=== PATIENT | male | born 1975 | race Hispanic/Latino ===

== ENCOUNTER 2018-11-16 17:03 | Inpatient (IN) | payer BC ==
[~2018-11-16] VITALS: Ht 175.3 cm; Wt 103.9 kg
[2018-11-16] MEDS ORDERED: SODIUM CHLORIDE 0.9% 1000ML 1,000 ML IV STA (17:12)
[2018-11-16] MEDS ORDERED: MORPHINE SULFATE INJ 4 MG/ML INJ 1ML IV NR (17:15)
[2018-11-16] MEDS ORDERED: ONDANSETRON HCL INJ 2MG/ML 2ML 2 MG/ML VIAL IV NR (18:00)
[2018-11-16 18:04] LABS: BILIRUBIN,URINE NEGATIVE (NEGATIVE); CLARITY,URINE SL CLOUDY (CLEAR); COLOR,URINE YELLOW (YELLOW); KETONES,URINE NEGATIVE (NEGATIVE); LEUKOCYTE ESTERASE ,URINE NEGATIVE (NEGATIVE); NITRITE,URINE NEGATIVE (NEGATIVE); PROTEIN,URINE DIPSTICK NEGATIVE (NEGATIVE); URINE UROBILINOGEN 0.2 mg/dL (0.2 - 1)
[2018-11-16 18:17] LABS: EPITHELIAL CELLS,URINE RARE /LPF
[2018-11-16] MEDS ORDERED: MORPHINE SULFATE INJ 4 MG/ML INJ 1ML IV PRN (18:30)
--- NOTE | 2018-11-16 21:45 | NUR ---
patient brought to unit from ER, patient stable, no n/v, no pain. patient denies medical history.
[2018-11-16] MEDS: SODIUM CHLORIDE 0.9% 1000ML 1,000 ML IV SCH (21:54)
[2018-11-16 22:15] LABS: BASOPHILS % 0.6 % (0.0-1.0); EOSINOPHILS # (AUTO) 0.1 (0.0-0.4); EOSINOPHILS % 1.2 % (0.0-6.0); HEMATOCRIT 44.3 % (38.2-49.6); HEMOGLOBIN 14.9 g/dL (14.0-18.0); LYMPHOCYTES # (AUTO) 1.6 (1.0-3.2); LYMPHOCYTES % 32.4 % (18.0-39.1); MEAN CORPUSCULAR HEMOGLOBIN 28.7 pg (28-32); MEAN CORPUSCULAR HGB CONC 33.6 g/dL (31-35); MEAN CORPUSCULAR VOLUME 85.2 fL (81-99); MONOCYTES # (AUTO) 0.8 (0.2-0.8); MONOCYTES % 15.2 % (4.4-11.3); NEUTROPHILS # (AUTO) 2.5 (2.1-6.9); NEUTROPHILS % 50.4 % (38.7-80.0); PLATELET COUNT 212 x10e3/uL (140-360); RED CELL DISTRIBUTION WIDTH 13.2 % (11.7-14.4)
[2018-11-16 22:26] LABS: INR 0.86; PROTHROMBIN TIME 12.2 seconds (11.9-14.5)
[2018-11-16 22:27] LABS: PARTIAL THROMBOPLASTIN TIME 33.4 seconds (23.8-35.5)
[2018-11-16 22:35] LABS: ALANINE AMINOTRANSFERASE 125 IU/L (0-55); ALBUMIN 3.9 g/dL (3.5-5.0); ALBUMIN/GLOBULIN RATIO 0.9 (0.8-2.0); ALKALINE PHOSPHATASE 124 IU/L (40-150); AMYLASE 32 U/L (25-125); ANION GAP 15.6 mmol/L (8-16); BLOOD UREA NITROGEN 16 mg/dL (7-26); BUN/CREATININE RATIO 18 (6-25); CALCIUM 9.6 mg/dL (8.4-10.2); CARBON DIOXIDE 30 mmol/L (22-29); CHLORIDE 96 mmol/L (98-107); CREATININE, SERUM 0.87 mg/dL (0.72-1.25); EST GLOMERULAR FILTRATION RATE > 60 ML/MIN (60-); GLUCOSE 93 mg/dL (74-118); LIPASE 42 U/L (8-78); POTASSIUM 3.6 mmol/L (3.5-5.1); SODIUM 138 mmol/L (136-145)
[2018-11-16] MEDS: PIPER-TAZ 3.375 GM / NS 50ML IV SCH (22:40)
[2018-11-16 23:24] LABS: CREATINE KINASE 54 IU/L (30-200)
[2018-11-16 23:30] VITALS: BP 114/80
[2018-11-16 23:56] VITALS: BP 124/76
[2018-11-17] VITALS (7 sets, daily range): BP systolic 94–175; BP diastolic 53–77
[2018-11-17] MEDS: SODIUM CHLORIDE 0.9% 1000ML 1,000 ML IV SCH ×2 (00:34→10:43)
[2018-11-17] MEDS: PIPER-TAZ 3.375 GM / NS 50ML IV SCH ×2 (04:53→14:00)
[2018-11-17 06:33] LABS: BASOPHILS % 0.6 % (0.0-1.0); EOSINOPHILS # (AUTO) 0.1 (0.0-0.4); EOSINOPHILS % 1.4 % (0.0-6.0); HEMATOCRIT 39.9 % (38.2-49.6); HEMOGLOBIN 13.1 g/dL (14.0-18.0); LYMPHOCYTES # (AUTO) 1.3 (1.0-3.2); LYMPHOCYTES % 25.3 % (18.0-39.1); MEAN CORPUSCULAR HEMOGLOBIN 27.9 pg (28-32); MEAN CORPUSCULAR HGB CONC 32.8 g/dL (31-35); MEAN CORPUSCULAR VOLUME 84.9 fL (81-99); MONOCYTES # (AUTO) 0.7 (0.2-0.8); MONOCYTES % 13.4 % (4.4-11.3); NEUTROPHILS % 59.1 % (38.7-80.0); PLATELET COUNT 200 x10e3/uL (140-360); RED CELL DISTRIBUTION WIDTH 13.1 % (11.7-14.4)
--- NOTE | 2018-11-17 07:20 | NUR ---
Dr. Vega called and reminded of the pending consult, states aware of patient.
--- NOTE | 2018-11-17 08:20 | NUR ---
Patient alert and responsive, received patient this morning and no resp distress, IV fluids running as ordered, no c/o pains, VSS and will monitor.
[2018-11-17] MEDS ORDERED: KETOROLAC TROMETHAMINE 30 MG/ML VIAL IV PRN (08:30)
--- NOTE | 2018-11-17 09:01 | NUR ---
Call to Dr. Flores's office to confirm consult was called and that he is aware, spoke with on-call and they will send him the information
--- NOTE | 2018-11-17 09:12 | NUR ---
Spoke with Dr. Yanes and he states was not aware of consult. Stat order in place for abdl u/s.
--- NOTE | 2018-11-17 11:36 | Consultation ---
DATE OF CONSULTATION: 11/17/2018 REASON FOR CONSULTATION: Cholecystitis. HISTORY OF PRESENT ILLNESS: The patient is a 43-year-old male, admitted through the emergency room with right upper quadrant pain. He had done an ultrasound elsewhere that revealed changes consistent with acute cholecystitis secondary to cholelithiasis, normal duct, there was hepatic steatosis. PAST MEDICAL HISTORY: The patient's past medical history is unremarkable. PAST SURGICAL HISTORY: No previous surgeries. MEDICATIONS: He certainly taking no medicines. SOCIAL HISTORY: He drinks socially. He does not smoke. He works as a driver messenger. REVIEW OF SYSTEMS: As per history of present illness. PHYSICAL EXAMINATION: GENERAL: Reveals a 43-year-old male, in no acute distress. HEAD, EYES, EARS, NOSE, and THROAT: Revealed no acute process. LUNGS: Clear. HEART: Revealed regular sinus rhythm. ABDOMEN: Soft, without any peritoneal signs. EXTREMITIES: Revealed no clubbing, cyanosis, or edema. LABORATORY DATA: Revealed normal white count with minimal elevation of the transaminases secondary to hepatic steatosis. RADIOGRAPHIC DATA: Ultrasound reveals normal ductal anatomy, gallstones, and changes consistent with acute cholecystitis. ASSESSMENT: Cholecystitis. PLAN: To proceed with laparoscopic cholecystectomy, possible open cholecystectomy. The procedure, indications, benefits, and risks have been discussed with the patient. They agreed with the surgery. MD LIZBETH Benito/JAC /[id number]
--- NOTE | 2018-11-17 11:39 | NUR ---
Patient signed consent for procedure at this time
[2018-11-17] MEDS ORDERED: BUPIVACAINE 0.25%/EPI 30ML SDV INJ ONE (11:47)
--- NOTE | 2018-11-17 11:56 | NUR ---
Patient picked up at this time for procedure
[2018-11-17] MEDS ORDERED: HYDROGEN PEROXIDE 120 ML BTL ONE (14:57)
[2018-11-17] MEDS ORDERED: ONDANSETRON HCL INJ 2MG/ML 2ML 2 MG/ML VIAL IV PRN (15:30)
[2018-11-17] MEDS: PANTOPRAZOLE 40 MG 10ML VIAL IV SCH (15:30)
[2018-11-17] MEDS ORDERED: FENTANYL CITRATE/PF 100MCG/2 ML INJ ONE ×2 (15:38→18:02)
[2018-11-17] MEDS ORDERED: PANTOPRAZOLE 40 MG 10ML VIAL ONE (16:12)
--- NOTE | 2018-11-17 16:40 | NUR ---
Report given to Nancy VALERIO and patient transferred to her care in stable condition
--- NOTE | 2018-11-17 16:59 | NUR ---
BACK IN ROOM VIA STRETCHER FROM PACU, AA&OX3, RA SATS 88-90%, 2L NC PLACED PER PROTOCOL, DRESSING CDI TO ABD, MICHELLE TO RIGHT SIDE WITH SCANT DARK RED DRAINAGE NOTED, C/O UPPER INTERMITTENT ABD PAIN , BILAT SCD'S IN PLACE, PUMP TURNED ON, RAC INTACT, CALL LIGHT WITHIN REACH
[2018-11-17] MEDS: HYDROMORPHONE 1MG/1ML INJ IV PRN ×3 (17:27→23:40)
[2018-11-17] MEDS: ONDANSETRON HCL INJ 2MG/ML 2ML 2 MG/ML VIAL IV PRN (17:28)
--- NOTE | 2018-11-17 17:29 | NUR ---
MD SLATER INTO SEE PT, NO NEW ORDERS, MEDICATED PT FOR PAIN 12/08, EDUCATED TO NOT GET OOB WITHOUT CALLING FOR ASSISTANCE, VERBALIZED UNDERSTANDING, CALL LIGHT WITHIN REACH, FAMILY AT SIDE
[2018-11-17] MEDS: PIPER-TAZ 3.375 GM 50 ML IV SCH ×2 (18:00→23:39)
[2018-11-17] MEDS ORDERED: DESFLURANE 240 ML BTL INH ONE (18:02)
[2018-11-17] MEDS ORDERED: PROPOFOL IV EMULSION 10 MG/ML 20 ML VIAL ONE (18:02)
[2018-11-17] MEDS ORDERED: LIDOCAINE HCL 2% LOCAL INJ 5 ML SDV VIAL INJ ONE (18:02)
[2018-11-17] MEDS ORDERED: MIDAZOLAM HCL 2 MG/2 ML VIAL ONE (18:02)
[2018-11-17] MEDS ORDERED: ROCURONIUM BROMIDE 10 MG/ML 5ML VIAL ONE (18:02)
[2018-11-17] MEDS ORDERED: ACETAMINOPHEN 1000 MG/100 ML IV ONE (18:02)
[2018-11-17] MEDS ORDERED: DEXAMETHASONE SOD PHOS INJ 4 MG/ML VIAL ONE (18:02)
--- NOTE | 2018-11-17 18:17 | NUR ---
RESTING WITH EYES CLOSED, RR EVEN AND NONLABORED, OPENS EYES TO VOICE, STATES "PAIN BETTER", CALL LIGHT WITHIN REACH, SCANT AMOUNT OF DRAINAGE NOTED IN MICHELLE
--- NOTE | 2018-11-17 18:39 | NUR ---
WITH STANDBY ASSIST, PT OOB TO BR, VOIDING WITHOUT DIFFICULTY, CALL LIGHT WITHIN REACH, FAMILY AT SIDE
--- NOTE | 2018-11-17 19:28 | Operative Report ---
DATE OF PROCEDURE: 11/17/2018 SURGEON: Timothy Flores MD PREOPERATIVE DIAGNOSES: Acute cholecystitis secondary to cholelithiasis, obesity. POSTOPERATIVE DIAGNOSES: Acute cholecystitis secondary to cholelithiasis, obesity. PROCEDURE PERFORMED: Laparoscopic cholecystectomy. ANESTHESIA: General endotracheal. ESTIMATED BLOOD LOSS: Minimal. DRAINS: None. COMPLICATION: None. INDICATION AND FINDINGS: The patient is a 43-year-old obese male, admitted because of acute cholecystitis. The patient started having severe excruciating pain. On Monday prior to admission, he went to [facility] where he was seen in the emergency room, given morphine and discharged home and told to follow up with his primary care physician. The patient then followed up with his GI doctor and had an ultrasound that revealed acute cholecystitis, reason for which he was sent to the emergency room at [facility] to be admitted. INTRAOPERATIVE FINDINGS: The patient had acute cholecystitis with several large stones. The gallbladder was intrahepatic, mainly the distal half of it completely intrahepatic and stuck to the liver parenchyma with several large stones in that area. This made the operation somewhat harder to perform. At some point, there was some spillage of stones due to the acute process with intrahepatic location of the gallbladder. Those were removed. The cystic duct was short and not dilated. There was no evidence of ductal dilatation. A 10 mm flat Jeff-Singh drain was placed to drain the right upper quadrant. Preoperatively, the patient and his family were counseled about potential complications such as bleeding, infection, bile duct, the need for an open procedure. They understood and agreed to proceed with emergent laparoscopic cholecystectomy. DESCRIPTION OF PROCEDURE: With the patient lying on the operative table in the supine position and after administration of general endotracheal anesthesia, he was prepped and draped for laparoscopic cholecystectomy. The procedure was begun by establishing the pneumoperitoneum in the umbilical site. After stab wound was made in that location and saline drop test was performed and pneumoperitoneum was insufflated to 15 mm of pressure. At that point, we placed a 10/11 trocar under direct vision with the camera, we placed a 10/11 subxiphoid port and 2 lateral working ports, 5 mm each in right midclavicular line and right anterior axillary line. The gallbladder was thickened and acutely inflamed, somewhat shrunken with large stones making it hard to elevate. We were able to retract the gallbladder cephalad and laterally through the 5 mm trocar and then the omentum, which was stuck to the gallbladder was sharply and cauterized from the gallbladder bed fossa and then we eventually got to the area of the hepatoduodenal ligament. We continued the dissection high in the neck of the gallbladder until we were able to identify the cystic duct, which was short and somewhat inflamed, not really dilated. We identified a cystic artery going into the gallbladder bed as well as the common duct, and only at that point, we then transected the structures of the cystic duct and the blood supply to the gallbladder and then we encountered a posterior branch that was also clipped and transected. We then continued the dissection distally until we got to a point where the gallbladder was intrahepatic with several large stones present in the liver. At that point, the dissection became more difficult and we tried to separate the gallbladder from the liver without creating any deep penetration into the liver. At some point where there were several large stones, we made a hole in the gallbladder and there was some spillage of stones that were removed. We then continued the dissection until we were able to remove all of the gallbladder that was remaining and very tightly stuck to the liver bed until we removed completely. We then placed the gallbladder in an endobag and removed it. We irrigated the operative field. A couple of stones were removed from the right upper quadrant. We copiously irrigated the operative field. The gallbladder bed fossa was cauterized from some oozing. There was no major bleeding. We then inspected again the cystic duct and the cystic artery and there was no bleeding or any evidence of bile leak seen. We then placed a 10 mm flat Jeff-Singh drain in the right upper quadrant and brought it out through the right anterior axillary line trocar and secured there with 2-0 silk, connected to self suction. We then before releasing the pneumoperitoneum again inspected the operative field. There was no bile leak. No bleeding. No apparent bowel injury. No residual stones were seen also. Then, we released the pneumoperitoneum and then closed the umbilical fascia with 3-0 Vicryl stitches. The subcutaneous tissues in that location as well as subxiphoid ports were closed using 3-0 Vicryl and the skin was closed using a combination of 3-0 silk and alex. Marcaine 0.25% with epinephrine was given as local block at the end of the case. The patient tolerated the procedure well and taken to recovery room in stable condition. The family was informed of the intraoperative findings. They are aware that because of the acuteness of the situation, the intrahepatic nature of this acute gallbladder with a chronic component, made this operation much more harder to perform and more prone to develop potential complications such as bile leak, infection, bleeding, etc. They understood. MD LIZBETH Benito/MODL /[id number]
--- NOTE | 2018-11-17 20:33 | NUR ---
administered prn pain medication, patient c/o abd pain. no s/s of distress. vss. no further needs voiced. bed locked and in lowest position, call light within reach.
--- NOTE | 2018-11-17 23:30 | NUR ---
medicated patient for c/o pain to abd. 30cc of sanguineous drainage from liv drain. no needs voiced. bed locked and in lowest position. call light within reach.
[2018-11-18] VITALS (9 sets, daily range): BP systolic 110–156; BP diastolic 66–94
[2018-11-18] MEDS: HYDROMORPHONE 1MG/1ML INJ IV PRN ×6 (02:38→22:08)
--- NOTE | 2018-11-18 02:38 | NUR ---
medicated patient for 8/10 pain from abd. no further needs voiced. patient resting in bed with eyes closed. family member at bedside. bed locked and in lowest position, call light within easy reach. will continue to monitor.
[2018-11-18] MEDS: PIPER-TAZ 3.375 GM 50 ML IV SCH ×3 (05:44→17:43)
--- NOTE | 2018-11-18 05:45 | NUR ---
medicated for 12/08 pain to abd. encouraged and educated patient and on IS usage, and encouraged to ambulate today. patient verbalized understanding. bed locked and in lowest position, call light within reach. will continue to monitor. Addendum: 11/18/18 at 0555 by Melissa De Dios RN 20cc serosanguineous drainage from MICHELLE drain emptied.
[2018-11-18 05:49] LABS: BASOPHILS % 0.1 % (0.0-1.0); EOSINOPHILS % 0.1 % (0.0-6.0); HEMATOCRIT 37.7 % (38.2-49.6); HEMOGLOBIN 12.8 g/dL (14.0-18.0); LYMPHOCYTES % 14.4 % (18.0-39.1); MEAN CORPUSCULAR HEMOGLOBIN 28.5 pg (28-32); MONOCYTES # (AUTO) 0.8 (0.2-0.8); MONOCYTES % 10.9 % (4.4-11.3); NEUTROPHILS # (AUTO) 5.3 (2.1-6.9); NEUTROPHILS % 74.2 % (38.7-80.0); PLATELET COUNT 221 x10e3/uL (140-360); RED BLOOD COUNT 4.49 x10e6/uL (4.3-5.7)
[2018-11-18 06:15] LABS: ALANINE AMINOTRANSFERASE 312 IU/L (0-55); ALBUMIN 3.4 g/dL (3.5-5.0); ALKALINE PHOSPHATASE 105 IU/L (40-150); ANION GAP 13.5 mmol/L (8-16); BLOOD UREA NITROGEN 13 mg/dL (7-26); BUN/CREATININE RATIO 13 (6-25); CALCIUM 8.8 mg/dL (8.4-10.2); CARBON DIOXIDE 27 mmol/L (22-29); CHLORIDE 100 mmol/L (98-107); EST GLOMERULAR FILTRATION RATE > 60 ML/MIN (60-); GLUCOSE 115 mg/dL (74-118); POTASSIUM 3.5 mmol/L (3.5-5.1); SODIUM 137 mmol/L (136-145)
--- NOTE | 2018-11-18 07:18 | NUR ---
report given to oncoming nurse, patient in stable condition.
[2018-11-18] MEDS: ONDANSETRON HCL INJ 2MG/ML 2ML 2 MG/ML VIAL IV PRN (08:39)
[2018-11-18] MEDS: SODIUM CHLORIDE 0.9% 1000ML 1,000 ML IV SCH ×2 (10:29→18:24)
--- NOTE | 2018-11-18 11:00 | NUR ---
Patient OOB and ambulated about 300 feet with staff, back to room and on chair, will monitor.
--- NOTE | 2018-11-18 13:35 | NUR ---
Orders per Dr. Dilia Gray to start clear liquid diet
[2018-11-18] MEDS: PANTOPRAZOLE 40 MG 10ML VIAL IV SCH (15:39)
[2018-11-18] MEDS: ACETAMINOPHEN 325 MG TAB PO PRN ×2 (16:00→22:08)
--- NOTE | 2018-11-18 16:36 | NUR ---
Patient OOB and ambulated about 300 feet, medicated with APAP for fever, encouraged to use IS and observed using with Tmax at 1500cc. Sitting on chair in the room at this time.
[2018-11-18] MEDS: HYDROCODONE/APAP 7.5MG-325MG 1 EA TAB PO PRN (17:58)
--- NOTE | 2018-11-18 18:24 | NUR ---
Febrile state trended down from 101.7 to 99.9, responded to antipyretic, patient OOB and ambulated, medicated with [place] for pain, MICHELLE drain in place, emptied with 50cc sero/sang drainage, call light within reach, tolerated clear liquid diet, will monitor.
--- NOTE | 2018-11-18 19:00 | NUR ---
RECEIVED PATIENT IN REPORT. PATIENT RESTING IN BED WITH FAMILY MEMBERS AT BEDSIDE. PAIN REPORTED 7/10, RECENTLY RECEIVED FIRST DOSE OF ORAL PAIN MEDS. NO S&S OF DISTRESS. BED LOCKED IN LOWEST POSITION, SIDE RAILS UPX2, CALL LIGHT IN REACH.
--- NOTE | 2018-11-18 22:10 | NUR ---
PATIENT REQUESTED IV PAIN MEDS, STATING PAIN IS 9/10. ALSO REQUESTED HIS TEMP CHECKED: 101.0. IV PAIN MEDS AND TYLENOL GIVEN AT THIS TIME. REMINDED PATIENT OF IMPORTANCE OF DEEP BREATHING, COUGHING, WALKING, THIS IS LIKELY WHY HIS TEMP IS ELEVATED. PATIENT VERBALIZED UNDERSTANDING BUT STATED HE FELT HE WAS UNABLE TO DO THESE THINGS D/T PAIN. EXPLAINED SPLINTING AND TOLD HIM TO USE IS WHEN PAIN MEDICINE BEGINS TO WORK. PATIENT VERBALIZED UNDERSTANDING. PATIENT STATED HE ALSO HAS NOT PASSED GAS. TOLD HIM WALKING AND TURNING WOULD HELP THE MOST WITH THIS AND TO LET US KNOW SOON HE DOES PASS GAS. PATIENT VERBALIZED UNDERSTANDING. WILL CONTINUE TO MONITOR.
[2018-11-19] VITALS (8 sets, daily range): BP systolic 118–142; BP diastolic 70–93
[2018-11-19] MEDS: PIPER-TAZ 3.375 GM 50 ML IV SCH ×5 (00:34→23:36)
--- NOTE | 2018-11-19 01:24 | Consultation ---
DATE OF CONSULTATION: 11/17/2018 HISTORY OF PRESENT ILLNESS: Mr. Langley is a patient of mine, saw him in the office early past week on Monday when he presented with abdominal pain, gastric. No apparent trigger factor, sharp, stayed the majority of the day. Only relief was morphine when he went to visit the emergency room, associated with nausea and vomiting, bloating, and chills. The patient earlier visited to the emergency room dyspepsia medicine and antiacid medication, but he contact office because he continued to have the abdominal pain. PAST MEDICAL HISTORY: Unremarkable. PAST SURGICAL HISTORY: Unremarkable. FAMILY HISTORY: Unremarkable. SOCIAL HISTORY: He is , has 4 kids. He drinks socially and does not smoke. ALLERGIES: NONE. MEDICATIONS: No routine medications. He was discharged home on ranitidine, Carafate, and esomeprazole. The 2nd day after I saw him in the office, he called us because he continued to have excruciating pain and his ultrasound of the abdomen which was ordered with my office revealed signs of acute cholecystitis and he was advised to come to the emergency room which he did and he was admitted. Dr. Edmundo Flores saw the patient and performed a laparoscopic cholecystectomy today the 2nd day after his emergency operation doing fine, lying in bed comfortably. He still . PHYSICAL EXAMINATION: GENERAL: Awake, alert, and oriented, hemodynamically stable. VITAL SIGNS: Afebrile. EYES: Normal sclerae. NECK: Supple. LUNGS: Clear. HEART: Irregularly irregular rhythm. ABDOMEN: Tender because of the recent surgery. No acute sign. EXTREMITIES: No edema. LABORATORY DATA: ALT 125, AST 55. Urinalysis is unremarkable. Total protein, alkaline phosphatase unremarkable. PLAN: Nothing to add. GI standpoint, the patient has symptom of acute cholecystitis. The surgery has performed. We will continue to monitor his liver function. Debbie Bui MD RD/MODL /[id number]
[2018-11-19] MEDS: HYDROCODONE/APAP 7.5MG-325MG 1 EA TAB PO PRN ×5 (03:28→23:36)
[2018-11-19 06:19] LABS: HEMATOCRIT 33.2 % (38.2-49.6); HEMOGLOBIN 11.2 g/dL (14.0-18.0); MEAN CORPUSCULAR HEMOGLOBIN 28.4 pg (28-32); MEAN CORPUSCULAR HGB CONC 33.7 g/dL (31-35); MEAN CORPUSCULAR VOLUME 84.3 fL (81-99); PLATELET COUNT 198 x10e3/uL (140-360); RED BLOOD COUNT 3.94 x10e6/uL (4.3-5.7); RED CELL DISTRIBUTION WIDTH 12.7 % (11.7-14.4)
[2018-11-19 06:37] LABS: ANION GAP 12.7 mmol/L (8-16); BLOOD UREA NITROGEN 8 mg/dL (7-26); BUN/CREATININE RATIO 9 (6-25); CALCIUM 8.6 mg/dL (8.4-10.2); CARBON DIOXIDE 29 mmol/L (22-29); CHLORIDE 100 mmol/L (98-107); CREATININE, SERUM 0.85 mg/dL (0.72-1.25); EST GLOMERULAR FILTRATION RATE > 60 ML/MIN (60-); GLUCOSE 105 mg/dL (74-118); POTASSIUM 3.7 mmol/L (3.5-5.1); SODIUM 138 mmol/L (136-145)
--- NOTE | 2018-11-19 07:22 | NUR ---
RECEIVED PATIENT AWAKE RESTING IN BED NO SIGNS OF DISTRESS. BED LOW, WHEELS LOCKED, SIDE RAILS X2. CALL LIGHT IN REACH. WILL CONTINUE TO MONITOR PATIENT.
[2018-11-19 07:25] LABS: BILIRUBIN,DIRECT 0.8 mg/dL (0.0-0.5)
--- NOTE | 2018-11-19 09:49 | NUR ---
PATIENT A/O X3, EVEN RESPIRATIONS. LUNG SOUNDS CLEAR TO AUSCULTATION. 4 TROCAR SITES ON ABDOMEN CLEAN DRY AND INTACT. LEFT HAND 20 GAUGE IV KVO @ 5CC/HR. IV INTACT/PATENT. EDUCATED PATIENT TO USE I.S. AND INCREASE AMBULATION. PATIENT VOICED UNDERSTANDING. FAMILY AT BEDSIDE. CALL LIGHT IN REACH WILL CONTINUE TO MONITOR PATIENT.
--- NOTE | 2018-11-19 10:14 | NUR ---
35 CC EMPTIED FROM MICHELLE DRAIN.
--- NOTE | 2018-11-19 10:24 | NUR ---
PATIENT AMBULATING IN HALLWAY AT THIS TIME. STEADY GAIT.
[2018-11-19] MEDS: PANTOPRAZOLE 40 MG 10ML VIAL IV SCH (15:20)
--- NOTE | 2018-11-19 15:20 | NUR ---
PATIENT STATED THAT HE HAS PASSED GAS. WILL CONTINUE TO MONITOR PATIENT. ENCOURAGED PATIENT TO AMBULATE TO HELP WITH BOWEL MOVEMENT.
--- NOTE | 2018-11-19 19:17 | NUR ---
received patient aaox3, sitting up in bed eating. at bedside. stable condition. no needs voiced. bed locked and in lowest, call light within easy reach. will continue to monitor patient.
[2018-11-19] MEDS: HYDROMORPHONE 1MG/1ML INJ IV PRN (20:42)
[2018-11-20 00:38] VITALS: BP 136/76
[2018-11-20] MEDS: HYDROCODONE/APAP 7.5MG-325MG 1 EA TAB PO PRN ×3 (03:48→12:19)
[2018-11-20 04:00] VITALS: BP 108/73
[2018-11-20] MEDS: PIPER-TAZ 3.375 GM 50 ML IV SCH ×2 (06:31→12:11)
[2018-11-20 06:42] LABS: BASOPHILS % 0.5 % (0.0-1.0); EOSINOPHILS # (AUTO) 0.1 (0.0-0.4); EOSINOPHILS % 1.8 % (0.0-6.0); HEMOGLOBIN 11.2 g/dL (14.0-18.0); LYMPHOCYTES # (AUTO) 1.1 (1.0-3.2); LYMPHOCYTES % 16.7 % (18.0-39.1); MEAN CORPUSCULAR HEMOGLOBIN 27.9 pg (28-32); MEAN CORPUSCULAR HGB CONC 32.9 g/dL (31-35); MEAN CORPUSCULAR VOLUME 84.6 fL (81-99); MONOCYTES # (AUTO) 0.6 (0.2-0.8); MONOCYTES % 9.3 % (4.4-11.3); NEUTROPHILS # (AUTO) 4.8 (2.1-6.9); NEUTROPHILS % 71.4 % (38.7-80.0); PLATELET COUNT 221 x10e3/uL (140-360); RED BLOOD COUNT 4.02 x10e6/uL (4.3-5.7); RED CELL DISTRIBUTION WIDTH 12.6 % (11.7-14.4)
--- NOTE | 2018-11-20 07:07 | NUR ---
report given to oncoming nurse. patient in bed, stable condition. bed locked and in lowest position, call light within easy reach.
--- NOTE | 2018-11-20 07:24 | NUR ---
RECEIVED PATIENT AWAKE RESTING IN BED NO SIGNS OF DISTRESS. BED LOW, WHEELS LOCKED, SIDE RAILS X2. CALL LIGHT IN REACH. WILL CONTINUE TO MONITOR PATIENT.
[2018-11-20 07:33] LABS: ALANINE AMINOTRANSFERASE 234 IU/L (0-55); ALBUMIN/GLOBULIN RATIO 0.8 (0.8-2.0); ALKALINE PHOSPHATASE 138 IU/L (40-150); ANION GAP 14.3 mmol/L (8-16); BLOOD UREA NITROGEN 7 mg/dL (7-26); BUN/CREATININE RATIO 8 (6-25); CALCIUM 9.2 mg/dL (8.4-10.2); CARBON DIOXIDE 30 mmol/L (22-29); CHLORIDE 96 mmol/L (98-107); CREATININE, SERUM 0.85 mg/dL (0.72-1.25); EST GLOMERULAR FILTRATION RATE > 60 ML/MIN (60-); GLUCOSE 107 mg/dL (74-118); POTASSIUM 3.3 mmol/L (3.5-5.1); SODIUM 137 mmol/L (136-145)
[2018-11-20 08:04] VITALS: BP 118/69
[2018-11-20 09:03] VITALS: BP 118/69
--- NOTE | 2018-11-20 09:41 | NUR ---
PATIENT A/O X3, EVEN RESPIRATIONS ON RA. BOWEL SOUNDS ACTIVE. PATIENT PASSING GAS, NO BM. MICHELLE DRAIN IN PLACE AND ABDOMINAL DRESSINGS CLEAN, DRY, AND INTACT. LEFT HAND 20 GAUGE IV KVO @ 5 CC/HR. IV INTACT AND PATENT. ENCOURAGED PATIENT TO USE I.S. AND AMBULATE. PATIENT VERBALIZED UNDERSTANDING. CALL LIGHT IN REACH, WILL CONTINUE TO MONITOR PATIENT.
[2018-11-20 12:03] VITALS: BP 121/83
[2018-11-20] MEDS ORDERED: TYLENOL WITH C1 EACH PO (12:40)
[2018-11-20] MEDS ORDERED: AUGMENTIN 500-1 EACH PO (12:40)
--- NOTE | 2018-11-20 13:25 | NUR ---
REMOVED PATIENTS IV. CATHETER TIP INTACT AND PRESSURE DRESSING APPLIED.
--- NOTE | 2018-11-20 13:30 | NUR ---
PATIENT DISCHARGED FROM FACILITY. PATIENT GATHERED ALL PERSONAL BELONGINGS, DISCHARGE INSTRUCTIONS AND FOLLOW UP INFORMATION. LEFT UNIT IN WHEELCHAIR AND WENT HOME VIA PRIVATE AUTO. NO SIGNS OF DISTRESS WHEN LEAVING FACILITY.
--- NOTE | 2018-11-30 10:00 | Operative Report ---
DATE OF PROCEDURE: 11/17/2018 SURGEON: Timothy Flroes MD ADDENDUM: FISHER TRAWL NET: Erica Medeiros, licensed surgical first assistant. Timothy Flores MD PJR/MODL /[id number]
== END 2018-11-20 13:30 | disposition home or self-care (01) | DRG 418 ==
LOC: ER 17:03 → ERHOLD 19:02 → INTOOBSV 19:02 → MED/SURG 22:45 → OBSVTOIN 11-17 15:28
PROVIDERS: ADMIT Internal Medicine; ATTEND Internal Medicine
PROC: 0FT44ZZ Resection of Gallbladder, Percutaneous Endoscopic Approach (ICD-10-PCS; principal; 2018-11-17 12:00)
DX: K80.00 Calculus of gallbladder with acute cholecystitis without obstruction (principal); Q44.1 Other congenital malformations of gallbladder; R16.0 Hepatomegaly, not elsewhere classified; K82.A1 Gangrene of gallbladder in cholecystitis
CPT/HCPCS: 36415; 80048; 80053; 80076; 81001; 82150; 82550; 82553; 83690; 84484; 85007; 85025; 85027; 85610; 85730; 88304; 93005; 99283; C1766; G0378; J1100; J1170; J2001; J2250; J2405; J2543; J3010; J7030

== ENCOUNTER → 2018-12-03 | Outpatient (CLI) | payer BC ==
[~2018-12-03] MED LIST: AUGMENTIN 500-1 EACH PO; TYLENOL WITH C1 EACH PO
[2018-12-03 17:12] LABS: ALBUMIN 3.9 g/dL (3.5-5.0); BILIRUBIN,DIRECT 0.3 mg/dL (0.0-0.5)
== END ==
LOC: LAB 16:12
PROVIDERS: ATTEND Surgery
DX: R94.5 Abnormal results of liver function studies (principal)
CPT/HCPCS: 36415; 80076